=== PATIENT | female | born 1970 | race Caucasian/White ===

== ENCOUNTER → 2020-07-09 | Outpatient (CLI) | payer OTHER ==
--- NOTE | 2020-07-09 12:28 | REP ---
INDICATION: N95.0 POST MENOPAUSAL BLEEDING. COMPARISON: None. TECHNIQUE: Transabdominal and endovaginal probes FINDINGS: The bladder measures 7.1 x 7.5 x 10 cm, adequately filled. The uterus is retroverted. It measures 7.6 x 4.2 x 4.2 cm. Central endometrial echogenic stripe appears heterogeneous on the endovaginal probe images. Best thickness measurement is 8 mm but is technically challenging to visualize. The right ovary is 2.5 x 1.3 x 0.8 cm without a mass or cyst. No adjacent fluid. Doppler tracing shows resistive index 0.68 with flow into that ovary. The left ovary is absent with history of oophorectomy. IMPRESSION: 1. Retroverted uterus with a heterogeneous endometrium up to 8 mm. History measurement is difficult to observe. No fluid in the endometrial cavity or in the cervical canal. In postmenopausal patients, thickness 5 mm or less is normal and 10 mm or greater is clearly abnormal. This falls in the intermediate range. 2. Right ovary with normal blood flow and no mass or cyst. The left ovary surgically absent. No pelvic free fluid <Electronically signed by Silvano Astudillo > 07/09/20 [id number]
== END ==
LOC: M WHC 10:20
PROVIDERS: ATTEND Obstetrics & Gynecology
DX: N95.0 Postmenopausal bleeding (principal)

== ENCOUNTER → 2020-08-17 | Outpatient (CLI) | payer OTHER ==
[~2020-08-17] MED LIST: PROG1CAP8 PO
== END ==
LOC: M LABSMTC 11:40
PROVIDERS: ATTEND Anesthesiology
DX: Z11.59 Encounter for screening for other viral diseases (principal)

== ENCOUNTER 2020-08-22 09:53 | Day surgery (SDC) | payer OTHER ==
[~2020-08-22] VITALS: Ht 167.6 cm; Wt 57.2 kg
[~2020-08-22 09:53] MED LIST changes: +ACETAMINOPHEN *IV* 1,000 MG IV ONE; +LR 1,000 ML IV ONE; +ceFAZolin SOD 2 GM in IV 1 EA IV ONE
[2020-08-22] MEDS ORDERED: ACETAMINOPHEN 1000MG 100ML IV BTL (OFIRMEV) (J0131 PER 10MG) As Ordered ONE (09:54)
[2020-08-22] MEDS ORDERED: LIDOCAINE 2% 100MG/5ML SDV (FOR ANES.) As Ordered ONE (09:54)
[2020-08-22] MEDS ORDERED: SUGAMMADEX SODIUM 500 MG/5 ML VIAL (BRIDION) As Ordered ONE (09:54)
[2020-08-22] MEDS ORDERED: ONDANSETRON 4MG/2ML VIAL As Ordered ONE (09:54)
[2020-08-22] MEDS ORDERED: ROCURONIUM BROMIDE 50 MG/5 ML VIAL As Ordered ONE (09:54)
[2020-08-22] MEDS ORDERED: KETOROLAC 60MG 2ML VIAL As Ordered ONE (09:54)
[2020-08-22] MEDS ORDERED: dexameTHASONE 4 MG/ML 1ML VIAL (J1100 PER 1MG) As Ordered ONE (09:54)
[2020-08-22] MEDS ORDERED: propofoL 200 MG/20 ML VIAL As Ordered ONE (09:54)
[2020-08-22] MEDS ORDERED: fentaNYL 100 MCG/2 ML INJECTION (J3010) As Ordered ONE (09:55)
[2020-08-22] MEDS ORDERED: MIDAZOLAM INJ 2MG/2ML VIAL (J2250 PER 1MG) As Ordered ONE (09:55)
[2020-08-22] MEDS ORDERED: HYDROmorphone HCL 2 MG/ML 1ML VIAL (J1170) As Ordered ONE (09:55)
[2020-08-22 10:26] LABS: HEMATOCRIT 45.8 % (36.0-47.0); HEMOGLOBIN 14.9 g/dl (12.0-15.5); MEAN CORPUSCULAR HEMOGLOBIN 33.2 pg (27.0-33.0); MEAN CORPUSCULAR HGB CONC 32.5 g/dl (32.0-36.5); PLATELET COUNT, AUTOMATED 251 10^3/uL (150-450); RED BLOOD COUNT 4.49 10^6/uL (4.00-5.40); WHITE BLOOD COUNT 6.4 10^3/uL (4.0-10.0)
[2020-08-22 10:50] LABS: BLOOD UREA NITROGEN 11 MG/DL (7-18); CALCIUM LEVEL 9.2 MG/DL (8.5-10.1); CARBON DIOXIDE LEVEL 29 MEQ/L (21-32); CHLORIDE LEVEL 107 MEQ/L (98-107); CREATININE FOR GFR 0.94 MG/DL (0.55-1.30); GLOMERULAR FILTRATION RATE > 60.0 (>58); GLUCOSE, FASTING 96 MG/DL (70-100); POTASSIUM SERUM 4.3 MEQ/L (3.5-5.1); SODIUM LEVEL 139 MEQ/L (136-145)
[2020-08-22] MEDS ORDERED: LIDOCAINE W/EPINEPHRINE 1% 20ML VIAL As Ordered ONE (12:10)
[2020-08-22] MEDS ORDERED: FLUORESCEIN 10% (100MG/ML) 5 ML VIAL As Ordered ONE (12:10)
[2020-08-22] MEDS ORDERED: MEPERIDINE INJ 25 MG/ML VIAL (J2175) As Ordered ONE (14:36)
[2020-08-22] MEDS: MEPERIDINE INJ 25 MG/ML VIAL (J2175) IV PRN ×2 (14:38→14:45)
[2020-08-22] MEDS ORDERED: oxyCODONE 5MG TAB PO PRN (15:00)
[2020-08-22] MEDS ORDERED: METOCLOPRAMIDE INJ 10MG/2ML VIAL (J2765 PER 1) IV PRN (15:00)
[2020-08-22] MEDS ORDERED: PERCOCET 5MG/325MG TAB PO PRN (15:00)
[2020-08-22] MEDS ORDERED: ONDANSETRON 4MG/2ML VIAL IV PRN (15:00)
[2020-08-22] MEDS ORDERED: LR 1,000 ML IV SCH (15:00)
[2020-08-22] MEDS: fentaNYL 100 MCG/2 ML INJECTION (J3010) IV PRN ×4 (15:05→15:27)
--- NOTE | 2020-08-22 15:32 | RO ---
OPERATIVE NOTE DATE OF OPERATION: 08/22/2020 INDICATIONS: Sylvia is a 50-year-old female with history of postmenopausal bleeding. After consult in the office decision was made for robotic-assisted total hysterectomy and removal of both tubes and ovaries. PREOPERATIVE DIAGNOSIS: Postmenopausal bleeding. POSTOPERATIVE DIAGNOSES: 1. Postmenopausal bleeding. 2. Absent left ovary and tube possibly due to prior surgery. PROCEDURES: 1. Robot-assisted total hysterectomy. 2. Right salpingo-oophorectomy. 3. Cystoscopy. ANESTHESIA: General. SURGEON: Ketan Winn DO COMPLICATIONS: None. ESTIMATED BLOOD LOSS: Less than 25 mL. FINDINGS: Normal appearing uterus, right ovary and tube. Left ovary and tube were missing. On cystoscopy bilateral ureteral jets were noted, no evidence of any bladder injury noted. SPECIMEN SENT TO THE LAB: Uterus, right ovary and tube. PROCEDURE: After obtaining informed consent the patient was taken to the operating room where general anesthesia was found to be adequate. She was prepped and draped in usual sterile fashion in dorsal lithotomy position. At this point Jarvis catheter was placed in the bladder for drainage. We then placed LILIANA II uterine manipulator. Attention was then turned to the abdomen where 8 mm infraumbilical incision was made. Using the Veress needle the abdomen was infiltrated with CO2 gas to approximately 3.5 liters. We then placed an 8 mm trocar with the laparoscope under direct visualization and two 8 mm left lateral ports were placed for robotic on 2 and the assist port and on the right an 8 mm lateral port was placed for robotic 1. I then placed the patient in deep Trendelenburg. The robot was brought to the patient's right side in 45-degree angle. The camera port was then docked. Proper targeting was performed and robotic arm 1 and 2 were then docked. Arm 1 vessel sealer was placed and arm 2 bipolar grasper was placed. I then unscrubbed and went to the surgeon console and began the hysterectomy. The above noted findings were found. The left adnexa were absent. At this point the round ligament was cauterized and clamped using the vessel sealer. This was brought down to the uterine arteries. The uterine arteries were cauterized and cut using the vessel sealer. The opposite side was visualized. The infundibulopelvic ligament was cauterized and cut using the vessel sealer. We then took serial bites to include the round ligament all the way down to the uterine artery. This was cauterized and cut. Anterior bladder flap was created as well as posterior bladder flap. At this point having secured the uterine arteries on each side the vessel sealer was removed. Endoshears was placed and anterior and posterior colpotomy performed. The uterus, right ovary and tube were removed through the vagina. 1 mL of Fluorescein was given by the anesthesiologist to assist in cystoscopy. We then proceeded to close the vaginal cuff with 2-0 V-Loc suture robotically. The peritoneum over the vaginal cuff was also closed. The pelvis copiously irrigated with normal saline and suctioned out. I then rescrubbed, went to the patient side, retrograde filled the bladder with 230 mL of normal saline and cystoscopy was performed. Bilateral ureteral jets noted, no evidence of any bladder injury noted. The cystoscope was removed. Jarvis catheter was placed back in the bladder for drainage. I then turned my attention to the abdomen where the robotic ports were closed using 3-0 Vicryl in subcuticular fashion. 0.25% Marcaine was placed, Dermabond placed. The patient tolerated the procedure well and was transferred to recovery room in stable condition. cc: [facility]
[2020-08-22 16:55] VITALS: BP 121/79
[2020-08-22] MEDS ORDERED: IBUPROFEN 800 MG TAB PO SCH (18:00)
[2020-08-22] MEDS ORDERED: SIMETHICONE 80 MG CHEW TAB PO SCH (18:00)
== END 2020-08-22 17:05 | disposition home or self-care (01) ==
LOC: M SDC 09:53
PROVIDERS: ATTEND Obstetrics & Gynecology
DX: N95.0 Postmenopausal bleeding (principal); Z79.890 Hormone replacement therapy; Z87.891 Personal history of nicotine dependence; Z98.51 Tubal ligation status
CPT/HCPCS: 36415; 58571; 80048; 85027; 86850; 86900; 86901; 88307; 96374; 96375; J0131; J0690; J1100; J1170; J1885; J2175; J2250; J2405; J3010